=== PATIENT | male | born 1980 | race Two or more races ===

== ENCOUNTER 2017-01-30 11:03 | Emergency (ER) | payer MEDICAID ==
[~2017-01-30] VITALS: Ht 167.6 cm; Wt 59.0 kg
[~2017-01-30 11:03] MED LIST: NO HOME MEDS
--- NOTE | 2017-01-30 11:08 | NUR ---
PT AMBULATORY TO ER BED 10. MAIN C/O HYPOTENSION FOR THE LAST WEEK. GENERALIZED WEAKNESS, CHEST PALPITATION AT NIGHT TIME, TINGGLY NIPPLES. PT DENIES CHEST PAIN AT THIS TIME. PLACED ON MONITOR. ASTABLE VITALS AWAITING MD WANG.
--- NOTE | 2017-01-30 11:53 | NUR ---
DR FELIPE AT BEDSIDE FOR EVAL.
[2017-01-30] MEDS ORDERED: IV NS 0.9% 1,000 ML BAG IV ONE (12:00)
--- NOTE | 2017-01-30 12:00 | NUR ---
IV LINE STARTED BLOOD DRAWN AND SENT TO LAB.
[2017-01-30] MEDS ORDERED: IV NS 0.9% 1,000 ML ONE (12:02)
[2017-01-30 12:08] LABS: BASOPHILS % (AUTO) 0.4 % (0.0-2.0); EOSINOPHILS # (AUTO) 0.1 /CMM (0.0-0.7); EOSINOPHILS % (AUTO) 2.3 % (0.0-6.0); HEMATOCRIT 43 % (39-51); HEMOGLOBIN 14.2 g/dL (13.5-17.5); LYMPHOCYTES % (AUTO) 16.1 % (20.0-44.0); MEAN CORPUSCULAR HEMOGLOBIN 30 PG (26.0-33.0); MEAN CORPUSCULAR HGB CONC 33 g/dl (31.0-36.0); MEAN CORPUSCULAR VOLUME 91 fL (80-96); MONOCYTES # (AUTO) 0.5 /CMM (0.1-1.30); MONOCYTES % (AUTO) 7.7 % (2.0-12.0); NEUTROPHILS # (AUTO) 4.4 /CMM (1.8-8.9); NEUTROPHILS % (AUTO) 73.5 % (43.0-81.0); PLATELET COUNT (AUTO) 187 /CMM (150-450); RDW COEFFICIENT OF VARIATION 11.4 (11.5-15.0)
[2017-01-30 12:16] LABS: CALCIUM, SERUM 8.6 mg/dL (8.5-10.1); CARBON DIOXIDE 27 mmol/L (21-32); CHLORIDE 109 mmol/L (98-107); CREATININE 1.2 mg/dL (0.6-1.3); GLUCOSE 92 mg/dL (74-106); POTASSIUM 4.7 mmol/L (3.5-5.1); SODIUM SERUM 139 mmol/L (136-145); UREA NITROGEN, BLOOD 20 mg/dL (7-18)
[2017-01-30 12:22] LABS: ALANINE AMINOTRANSFERASE 22 U/L (12-78); ALBUMIN 3.6 g/dL (3.4-5.0); ALKALINE PHOSPHATASE 52 U/L (46-116); ASPARTATE AMINOTRANSFERASE 17 U/L (15-37); BILIRUBIN,DIRECT 0.1 mg/dL (0.0-0.2); BILIRUBIN,TOTAL 0.5 mg/dL (0.2-1.0); TOTAL PROTEIN, SERUM 6.6 g/dL (6.4-8.2)
[2017-01-30 12:29] LABS: TROPONIN I < 0.017 ng/mL (0.00-0.056)
[2017-01-30 13:18] VITALS: BP 108/64
--- NOTE | 2017-01-30 13:18 | NUR ---
Patient discharged to home in stable condition. Written and verbal after care instructions given. Patient verbalizes understanding of instruction.IV removed. Catheter intact and site benign. Pressure and 4x4 applied to site. No bleeding noted.
== END 2017-01-30 13:20 | disposition home or self-care (01) ==
LOC: ER 11:05
DX: I95.9 Hypotension, unspecified (principal); E86.0 Dehydration; R53.1 Weakness
CPT/HCPCS: 36415; 71010; 80048; 80076; 84484; 85025; 93005; 96360; 99285; A4606; J7030; Z7610

== ENCOUNTER 2017-11-11 20:30 | Emergency (ER) | payer BC, MEDICAID ==
[~2017-11-11] VITALS: Ht 167.6 cm; Wt 61.2 kg
--- NOTE | 2017-11-11 20:40 | NUR ---
PT BIB FAMILY, PT C/O WEAKNESS AND NOT BEING ABLE TO TAKE FULL BREATH X 3, DAYS NAD NOTED SPEAKING IN FULL SENTANCES, VSS, RESP EVEN AND UNLABORED, PT WAS PUT ON MONITOR. WAITING FOR MD WANG.
[2017-11-11 20:50] LABS: BASOPHILS % (AUTO) 0.6 % (0.0-2.0); EOSINOPHILS % (AUTO) 0.9 % (0.0-6.0); HEMATOCRIT 41 % (39-51); HEMOGLOBIN 14.4 g/dL (13.5-17.5); LYMPHOCYTES # (AUTO) 1.5 /CMM (0.8-4.8); LYMPHOCYTES % (AUTO) 17.9 % (20.0-44.0); MEAN CORPUSCULAR HGB CONC 35 g/dl (31.0-36.0); MEAN CORPUSCULAR VOLUME 88 fL (80-96); MONOCYTES # (AUTO) 0.6 /CMM (0.1-1.30); MONOCYTES % (AUTO) 6.7 % (2.0-12.0); NEUTROPHILS # (AUTO) 6.1 /CMM (1.8-8.9); NEUTROPHILS % (AUTO) 73.9 % (43.0-81.0); PLATELET COUNT (AUTO) 212 /CMM (150-450); RDW COEFFICIENT OF VARIATION 11.6 (11.5-15.0); RED BLOOD CELL COUNT(AUTO) 4.68 MIL/uL (4.5-6.0); WHITE BLOOD COUNT (AUTO) 8.3 K/uL (4.3-11.0)
[2017-11-11 20:59] LABS: CREATININE 1.1 mg/dL (0.6-1.3); POTASSIUM 3.8 mmol/L (3.5-5.1)
[2017-11-11 21:05] LABS: ALBUMIN 4.2 g/dL (3.4-5.0); BILIRUBIN,TOTAL 0.9 mg/dL (0.2-1.0); TOTAL PROTEIN, SERUM 7.5 g/dL (6.4-8.2)
[2017-11-11 21:08] LABS: INR 1.02 (0.85-1.15)
[2017-11-11] MEDS ORDERED: LORAZEPAM 0.5 MG TABLET PO ONE (21:30)
[2017-11-11] MEDS ORDERED: LORAZEPAM 1 MG TABLET ONE (21:44)
[2017-11-11 22:05] VITALS: BP 112/70
== END 2017-11-11 22:07 | disposition home or self-care (01) ==
LOC: ER 20:31
DX: R06.02 Shortness of breath (principal); R20.2 Paresthesia of skin
CPT/HCPCS: 36415; 71045-TC; 80053-TC; 84484-TC; 85025-TC; 85730-TC; A4606; Z7610

== ENCOUNTER 2019-04-24 11:37 | Emergency (ER) | payer MEDICAID ==
[~2019-04-24] VITALS: Ht 165.1 cm; Wt 72.6 kg
[2019-04-24 11:39] VITALS: BP 104/64
[2019-04-24 12:02] LABS: BASOPHILS % (AUTO) 0.6 % (0.0-2.0); HEMATOCRIT 44 % (39-51); LYMPHOCYTES % (AUTO) 19.6 % (20.0-44.0); MEAN CORPUSCULAR HGB CONC 34 g/dl (31.0-36.0); MEAN CORPUSCULAR VOLUME 92 fL (80-96); MONOCYTES # (AUTO) 0.4 /CMM (0.1-1.30); MONOCYTES % (AUTO) 7.1 % (2.0-12.0); NEUTROPHILS # (AUTO) 3.6 /CMM (1.8-8.9); NEUTROPHILS % (AUTO) 70.7 % (43.0-81.0); PLATELET COUNT (AUTO) 178 /CMM (150-450); RED BLOOD CELL COUNT(AUTO) 4.79 MIL/uL (4.5-6.0)
[2019-04-24 12:06] LABS: CALCIUM, SERUM 9.1 mg/dL (8.5-10.1); CREATININE 0.9 mg/dL (0.6-1.3); POTASSIUM 4.2 mmol/L (3.5-5.1)
--- NOTE | 2019-04-24 12:44 | NUR ---
PATIENT A/OX4, NO SOB NOTED, VITALS STABLE, Patient discharged to home in stable condition. Written and verbal after care instructions given. Patient verbalizes understanding of instruction.
== END 2019-04-24 12:45 | disposition home or self-care (01) ==
LOC: ER 11:37
DX: R06.02 Shortness of breath (principal)
CPT/HCPCS: 36415; 71045-TC; 80048-TC; 85025-TC